=== PATIENT | male | born 1990 | race Two or more races ===

== ENCOUNTER 2016-10-09 06:45 | Emergency (ER) | payer SELFPAY ==
[~2016-10-09] VITALS: Ht 180.3 cm; Wt 74.8 kg
[2016-10-09 06:50] VITALS: BP 138/62
== END 2016-10-09 09:18 | disposition left against medical advice (07) ==
LOC: EDSEX 06:48 → ER 06:48
DX: F10.129 Alcohol abuse with intoxication, unspecified (principal)
CPT/HCPCS: A4606; Z7610